=== PATIENT | male | born 1955 | race Caucasian/White ===

== ENCOUNTER 2019-07-10 16:30 | Outpatient (RCR) | payer MEDICARE, OTHER, SELFPAY ==
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
--- NOTE | 2019-07-10 17:13 | HP.PTDCSUM ---
HP - PT D/C Summary It has been my pleasure to treat NAVARRO FREEMAN under orders from Jame Anaya, for the diagnosis of LOW BACK PAIN WITH RADICULAR SYMPTOMS. for a total of 9 visit(s). Discharge Date: 07/10/19 Please see the following information for a summary of their discharge status. - Subjective Subjective: PATIENT REPORTS HE IS DOING ABOUT THE SAME OR MAYBE A LITTLE WORSE. PATIENT REPORTS THIS THERAPY WAS BETTER THAN THERAPY AT [facility] BECAUSE IT SEEMED TO STRENGTHEN HIS AB MUSCLES WITH LESS IMPRACT. THIS WAS A LOT BETTER. PATIENT REPORTS HE IS STILL WORKING. PATIENT IS QUESTIONING IF A SECOND RADIOLOGIST OPINION IS WARRENTED. THIS PT RECOMMENDED PATIENT DISCUSS WITH HIS PHYSICIAN. - Pain RIGHT THORACIC Pain Intensity (Out of 10): 3 LEFT THORACIC Pain Intensity (Out of 10): 0 - Objective Objective/Function: UPON EXAM TODAY, PATIENT IS ABOUT THE SAME OR A LITTLE BETTER SINCE INITIAL EVAL. HE IS HOWEVER SUBJECTIVLY REPORTING THAT HIS PAIN IS ABOUT THE SAME OR WORSE. UPON EXAM TODAY: Motor deficit: SAMY LE'S 5/5 WITH MMT'ING. Sensory deficit: SAMY LE LIGHT TOUCH SENSATION INTACT AND SYMMETRICAL. ROM deficit: TIGHT SAMY HS'S AND GASTROC SOLEUS COMPLEX'S. Reflexes: SAMY LE'S 1/2. Dural Signs: MILDLY POSITIVE RIGHT LE. Lumbar mvmt loss: flex - MIN TO MOD - NE. ext - HALLIE - NE. R SG - MOD - INCREASES PAIN IN THE RIGHT RIB AREA. L SG - MOD - INCRASES PAIN IN THE RIGHT RIB AREA. Thoracic Mvmt Loss: MIN ALL PLANES BUT TESTING HAS NE ON PAIN UNTIL END OF THE AVAILABLE RANGE SAMY CAUSING INCREASED RIGHT BACK PAIN. Core strength: POOR. Palpation: NO ACUTE TENDERNESS WITH PALPATION OF THE THORACIC, LUMBAR, SACRAL, RIB, HIP OR PELVIC REGIONS. - Goals Goal 1:: DECREASE C/O BACK AND SAMY LE SX'S. Goal Progress: Not Progressing Goal 2:: IMPROVE PERSONAL CARE, LIFTING, WALKING, SITTING, STANDING, SLEEP, SOCIAL LIFE, TRAVEL AND HOMEMAKING FUNCTION. Goal Progress: Not Progressing Goal 3:: INSTRUCT IN PROPHYLAXIS Goal Progress: Not Progressing - Plan Plan: D/C DUE TO LACK OF SIGNIFICANT IMPROVEMENT. PHYSICIAN RE-ASSESSMENT RECOMMENDED. - D/C Information If there are questions or concerns regarding this patient's physical therapy, please feel free to call me at [phone]. Thank you for the referral of this patient. Sincerely, Sil Lehman PT, Cert MDT
== END 2019-07-10 19:00 | disposition home or self-care (01) ==
LOC: PT 16:30
DX: M54.41 Lumbago with sciatica, right side (principal)
CPT/HCPCS: 97113; 97162; 97530